=== PATIENT | male | born 1995 | race Caucasian/White ===

== ENCOUNTER 2018-10-10 10:23 | Emergency (ER) | payer BC, OTHER ==
[2018-10-10 11:10] VITALS: BP 126/80
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
== END 2018-10-10 14:24 | disposition home or self-care (01) ==
LOC: UCEAST 10:23
DX: S30.1XXA Contusion of abdominal wall, initial encounter (principal); V89.2XXA Person injured in unspecified motor-vehicle accident, traffic, initial encounter; Y92.9 Unspecified place or not applicable
CPT/HCPCS: 74150; 81003; 99202; G0463